=== PATIENT | male | born 1970 | race African-American/Black ===

== ENCOUNTER 2016-06-22 09:25 | Emergency (ER) | payer BC ==
[~2016-06-22] VITALS: Ht 172.7 cm; Wt 95.0 kg
[2016-06-22 09:26] VITALS: BP 167/103; PULSE 56; RESP 16; TEMP 97.9; O2SAT 96
[2016-06-22 09:33] VITALS: BP 166/100; PULSE 59; RESP 17; TEMP 98.1; O2SAT 97
--- NOTE | 2016-06-22 09:35 | PD ---
HPI Chief Complaint: pelvic pain Time Seen by Provider: 09:33 Travel History International Travel<30 days: No Contact w/Intl Traveler<30days: No Traveled to known affect area: No History of Present Illness HPI 46-year-old male came to the emergency room with history of 3 months off pelvic/ suprapubic pain. Diagnosed with prostatitis by his urologist 8 months ago. That was in [place] and he took 3 weeks of Motrin. Patient says he was feeling better up until 3 months ago. He has moved here now and does not have a doctor. No history of penile discharge, no history of fever or chills. PFSH Past Medical History Narrative Medical List of his past medical history is reviewed from the nursing note. Social History Tobacco Use: No Allergies-Medications (Allergen,Severity, Reaction): Coded Allergies: Amoxicillin (Verified Allergy, Unknown, Swelling, 06/22/16) Doxycycline (Verified Allergy, Unknown, Swelling, 06/22/16) Comments List of his allergies reviewed from the nursing note. Reported Meds & Prescriptions Reported Meds & Active Scripts Active Ibuprofen 400 Mg Tab 400 Mg PO Q8H PRN 14 Days Ciprofloxacin (Ciprofloxacin HCl) 500 Mg Tab 500 Mg PO BID Reported Metoprolol Tartrate 25 Mg Tab 25 Mg PO DAILY Narrative Medication List of his home medications reviewed from the nursing note. Review of Systems Except as stated in HPI: all other systems reviewed are Neg Physical Exam Narrative GENERAL: Awake, alert, no obvious distress SKIN: Warm and dry. HEAD: Atraumatic. Normocephalic. EYES: Pupils equal and round. No scleral icterus. No injection or drainage. ENT: No nasal bleeding or discharge. Mucous membranes pink and moist. NECK: Trachea midline. No JVD. CARDIOVASCULAR: Regular rate and rhythm. No murmur appreciated. RESPIRATORY: No accessory muscle use. Clear to auscultation. Breath sounds equal bilaterally. GASTROINTESTINAL: Abdomen soft, non-tender, nondistended. Hepatic and splenic margins not palpable. MUSCULOSKELETAL: No obvious deformities. No clubbing. No cyanosis. No edema. NEUROLOGICAL: Awake and alert. No obvious cranial nerve deficits. Motor grossly within normal limits. Normal speech. PSYCHIATRIC: Appropriate mood and affect; insight and judgment normal. Data Data Last Documented VS Vital Signs Date Time Temp Pulse Resp B/P Pulse Ox O2 Delivery O2 Flow Rate FiO2 06/22/16 09:33 98.1 59 17 166/100 97 06/22/16 09:26 Room Air Orders Urinalysis - C+S If Indicated (06/22/16 10:39) Labs Laboratory Tests Test 06/22/16 10:40 Urine Color YELLOW Urine Turbidity CLEAR Urine pH 5.5 Urine Specific [place] 1.010 Urine Protein NEG mg/dL Urine Glucose (UA) NEG mg/dL Urine Ketones NEG mg/dL Urine Occult Blood NEG Urine Nitrite NEG Urine Bilirubin NEG Urine Urobilinogen LESS THAN 2.0 MG/DL Urine Leukocyte Esterase NEG Urine RBC LESS THAN 1 /hpf Urine WBC LESS THAN 1 /hpf Microscopic Urinalysis Comment CULT NOT INDICATED MDM Medical Decision Making Medical Screen Exam Complete: Yes Emergency Medical Condition: Yes Medical Record Reviewed: Yes Differential Diagnosis Acute on chronic prostatitis, cystitis Narrative Course 11:12 AM urine analysis is within normal limits. Given the fact that he has had prostatitis diagnosed by urologist earlier this year the symptoms could very well the of prostatitis again. I will discharge him home on a prescription for ciprofloxacin and ibuprofen. Procedures EKG Prior to Arrival: No Diagnosis Primary Impression: Chronic prostatitis Referrals: Primary Care Physician 1 week Additional Instructions: Please find a primary care physician for yourselves who can address your chronic ailments as well. Please return to the ER if there is any acute symptoms or new concerns. Take the medications as per the prescription direction. Med/Other Pt SpecificInfo: Prescription(s) given Scripts Ibuprofen 400 Mg [id number] Mg PO Q8H PRN (pain) 14 Days Ref 0 Prov:Jay Dennison MD 06/22/16 Ciprofloxacin 500 Mg [id number] Mg PO BID #20 TAB Ref 0 Prov:Jay Dennison MD 06/22/16 Disposition: 01 DISCHARGE HOME Condition: Stable Jay Dennison MD Jun 22, 2016 09:35
[2016-06-22] MEDS ORDERED: METO25TA3 PO (09:40)
[2016-06-22 10:57] LABS: BLOOD, URINE NEG (NEG); GLUCOSE,URINE NEG (NEG); KETONE, URINE NEG (NEG); NITRITE,URINE NEG (NEG); PH, URINE 5.5 (5.0-8.5); URINE COLOR YELLOW (YELLW/STRAW)
[2016-06-22 11:02] LABS: COMMENT (UR) CULT NOT INDICATED; CULTURE IF INDICATED CULT NOT INDICATED
[2016-06-22] MEDS ORDERED: IBUP400T20 PO (11:14)
[2016-06-22] MEDS ORDERED: CIPR500T2 PO (11:14)
== END 2016-06-22 12:03 | disposition home or self-care (01) ==
LOC: NEPA 09:25
DX: N41.1 Chronic prostatitis (principal)
CPT/HCPCS: 81001; 99283